=== PATIENT | male | born 1960 | race Caucasian/White ===

== ENCOUNTER 2018-07-01 09:00 | Observation (INO) ==
[2018-07-01] MEDS ORDERED: Naloxone 0.4 MG/ML INJ IVP PRN (09:49)
[2018-07-01 10:51] LABS: BUN/Creatinine Ratio 17 (6-26); Blood Urea Nitrogen 16 mg/dL (6-20); Calcium 9.6 mg/dL (8.6-10.3); Carbon Dioxide 24 mEq/L (23-29); Chloride 105 mEq/L (98-107); Glucose 103 mg/dL (70-105); Osmolality,Calculated 287 (280-300); Potassium 4.2 mEq/L (3.5-5.1); Sodium 138 mEq/L (136-145); eGFR For Non-African Americans > 60 (> 60)
--- NOTE | 2018-07-01 11:26 | Cardiology History & Physical ---
Addendum entered and electronically signed by Perry Noe MD 07/01/18 16:19: Continue Xarelto 20 mg daily Original Note: <Lynne Downing - Last Filed: 07/01/18 12:23> Date of Encounter: 07/01/18 Time of Encounter: 10:00 Assessment and Plan (1) PAF (paroxysmal atrial fibrillation) Current Visit: Yes Status: Chronic Per cardiology: -Known history of PAF. -Stress 05/2018 negative for ischemia. TTE 04/2018 LVEF preserved, indeterminate diastolic function, bi-atrial enlargement, mild MR, mild [place], no wall motion abnormalities noted. -ON cardizem at home. -ON xarelto for anticoagulation. -Plan for sotalol initiation. -Renal function normal. -Baseline ECG 07/01/17 with SR, HR 76. QT 376/ QTc 423ms. -Discussed and reviewed with , will start sotalol 80mg [id number]. -ECGs daily. -Continuous telemetry. -The assessment and plan as outlined above was discussed with the patient and/or family members who expressed understanding and agreement. All questions were answered. (2) Encounter for monitoring anti-arrhythmic therapy Current Visit: Yes Status: Acute Per cardiology: -Admitted for sotalol initiation. -See PAF as above -The assessment and plan as outlined above was discussed with the patient and/or family members who expressed understanding and agreement. All questions were answered. (3) Essential hypertension Current Visit: Yes Status: Chronic Per cardiology: -KNown HTN. -Will continue home anti-hypertensives. -The assessment and plan as outlined above was discussed with the patient and/or family members who expressed understanding and agreement. All questions were answered. History of Present Illness Chief complaint: A.fib HPI: Mr. Caceres is a 57 year old male with a relevant past medical history of HTN, PAF, kidney stones who was directly admitted to [facility] for sotalol initiation. Patient has known PAF and follows with outpatient. Patient denies complaints today. States he feels well. Deneis current palpitations or fluttering. Denies bleeding or blood loss. Anticoagulated with xarelto. Past Med Surg Social Fam HX - Past Medical History Attestation: Yes The following information was validated with the patient. Source: patient Medical history: atrial fibrillation, hypertension Additional medical history: basal cell skin CA Psychiatric history: no psych history - Past Surgical History Surgical History: herniorrhaphy Additional surgical history: basal cell skin CA removed from right of nose; kidney stone removal - Social History Smoking Status: Never smoker Smokeless Tobacco Status: No Alcohol use: none Drug use: none Medications and Allergies Aspirin 81 mg PO DAILY 02/15/17 [History] Mv-Mn/FA/Vit K/Lycop/Lut/Coq10 [Daily Multivitamin Capsule] 1 tab PO DAILY 02/15/17 [History] Diltiazem CD (24hr) [Cardizem CD] 300 mg PO DAILY 07/01/18 [History] Lisinopril [Zestril] 5 mg PO DAILY 07/01/18 [History] Rivaroxaban [Xarelto] 20 mg PO DAILY 07/01/18 [History] Allergy/AdvReac Type Severity Reaction Status Date / Time No Known Allergies Allergy Verified 02/15/17 12:53 All Systems Review: The remainder of the systems were reviewed and are negative - Cardiovascular Cardiovascular: as per HPI, palpitations (No current palpitations) Physical Examination Vital Signs, Last 4 Hours Temp Pulse Resp BP Pulse Ox 07/01/18 09:44 98.3 F 85 14 133/76 98 General: Conversant, No Apparent Distress HEENT: Atraumatic, Normocephaly, Mucus Membranes Moist Neck: No JVD, Normal carotid pulses Cardiac: Reg Rate and Rhythm, Normal S1 and S2, No Murmur Lungs: Normal Breath Sounds, No Wheeze, Rales, Rhonchi Neuro: Alert and responsive, No focal deficits noted Abdomen: Soft, Non-Tender Skin: No rashes noted on visualized skin Musculoskeletal: No Chest Wall Tenderness Extremities: No Clubbing, No Cyanosis, No Edema, Normal Pulses Results 07/01/18 10:13 07/01/18 10:13 Lab Results Laboratory Tests 07/01/18 10:13 Creatinine 0.93 - Imaging and Cardiology Stress Test: report reviewed Echo: report reviewed - EKG Interpretation EKG results cardiology: personally reviewed (ECG with SR, HR 76. QT 376/QTc 423ms.) - VTE Reasons for not Prescribing Prophylaxis: Not indicated-Anticoagulated or INR therapeutic < A - Last Filed: 07/01/18 16:19> Date of Encounter: 07/01/18 - Attending Attestation I have personally performed a face to face evaluation on this patient. I have reviewed and agree with the documented findings and care plan as documented by the APPLE PACKING HEADER. History and Exam by me shows: 57-year-old pleasant gentleman with history of paroxysmal atrial fibrillation, admitted for sotalol initiation. EKG shows normal sinus rhythm with QT interval within normal limits. Monitor EKGs on sotalol. Hold if QT interval is > 500 ms Perry Colvin MD History of Present Illness HPI: Mr. Caceres is a 57 year old male All Systems Review: The remainder of the systems were reviewed and are negative Physical Examination Vital Signs, Last 4 Hours Temp Pulse Resp BP Pulse Ox 07/01/18 14:35 97.5 F L 72 18 123/92 95 Results 07/01/18 10:13 07/01/18 10:13 Lab Results 07/01/18 07/01/18 10:13 10:13 WBC 7.4 Hgb 15.6 Hct 45.0 Plt Count 261 Sodium 138 Potassium 4.2 Chloride 105 Carbon Dioxide 24 BUN 16 Creatinine 0.93 Glucose 103 Calcium 9.6
[2018-07-01 11:59] LABS: Basophils # 0.1 K/mcL (0.0-0.2); Basophils % 0.8 %; Eosinophils # 0.2 K/mcL (0.0-0.6); Hemoglobin 15.6 g/dL (12.9-16.9); Immature Granulocytes % 0.4 % (0-4); Lymphocytes # 1.8 K/mcL (0.6-4.6); Mean Corpuscular HGB Conc 34.7 g/dL (31.6-35.5); Mean Corpuscular Hemoglobin 30.4 pg (28.0-33.3); Mean Corpuscular Volume 87.7 fL (83.0-100.0); Mean Platelet Volume 9.8 fL (9.4-12.4); Monocytes # 0.7 K/mcL (0.0-1.3); Monocytes % 9.9 %; Neutrophils # 4.6 K/mcL (1.6-8.9); Platelet Count 261 K/mcL (140-400); Red Blood Count 5.13 M/mcL (4.19-5.50); Red Cell Distribution Width 13.2 % (11.5-14.5); Segmented Neutrophils % 61.9 %
--- NOTE | 2018-07-01 15:30 | Electrocardiograph Report ---
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
[2018-07-02] MEDS: Multivit/Ca/Min/Fe/FA 1 TAB TABLET PO SCH (09:52)
[2018-07-02] MEDS: Aspirin 81 MG TAB.CHEW PO SCH (09:52)
[2018-07-02] MEDS: *HR* Rivaroxaban 10 MG TABLET PO SCH (09:52)
[2018-07-02] MEDS: Diltiazem CD (24hr) 300 MG CAPSULE PO SCH (09:52)
--- NOTE | 2018-07-02 10:40 | Cardiology Progress Note ---
Date of Encounter: 07/02/18 Time of Encounter: 09:00 Assessment and Plan (1) PAF (paroxysmal atrial fibrillation) Current Visit: Yes Status: Chronic Per cardiology: -Known history of PAF. -Stress 05/2018 negative for ischemia. TTE 04/2018 LVEF preserved, indeterminate diastolic function, bi-atrial enlargement, mild MR, mild MI, no wall motion abnormalities noted. -ON cardizem at home. -ON xarelto for anticoagulation. Denies missed doses in the past 30 days. -Renal function normal. -Baseline ECG 07/01/17 with SR, HR 76. QT 376/ QTc 423ms. -ECG 07/02/18 s/p 2 total doses with SR, HR 68. QT 417/QTc 444ms. -Continue sotalol. Continue cardizem and xarelto. -ECGs daily. -Continuous telemetry. -Will continue to monitor. (2) Encounter for monitoring anti-arrhythmic therapy Current Visit: Yes Status: Acute Per cardiology: -Admitted for sotalol initiation. -See PAF as above (3) Essential hypertension Current Visit: Yes Status: Chronic Per cardiology: -KNown HTN. -Will continue home anti-hypertensives. Discussion w patient/family: The assessment and plan as outlined above was discussed with the patient who expressed understanding and agreement. All questions were answered. Thank you for involving us in the care of your patient. Please call with any questions. Discussed and reviewed with Subjective Principal diagnosis: PAF Interval history: Patient reports he feels fine today. Denies complaints. Objective Vital Signs, Last 4 Hours Temp Pulse Resp BP Pulse Ox 07/02/18 07:30 97.8 F 67 16 133/91 96 General: Conversant, No Apparent Distress HEENT: Atraumatic, Normocephaly, Mucus Membranes Moist Neck: No JVD, Normal carotid pulses Cardiac: Reg Rate and Rhythm, Normal S1 and S2, No Murmur Lungs: Normal Breath Sounds, No Wheeze, Rales, Rhonchi Neuro: Alert and responsive, No focal deficits noted Abdomen: Soft, Non-Tender Skin: No rashes noted on visualized skin Musculoskeletal: No Chest Wall Tenderness Extremities: No Clubbing, No Cyanosis, No Edema, Normal Pulses Results 07/01/18 10:13 07/01/18 10:13 Lab Results 07/01/18 07/01/18 10:13 10:13 WBC 7.4 Hgb 15.6 Hct 45.0 Plt Count 261 Sodium 138 Potassium 4.2 Chloride 105 Carbon Dioxide 24 BUN 16 Creatinine 0.93 Glucose 103 Calcium 9.6 Active Medications Aspirin (Aspirin) 81 mg PO DAILY [facility] Stop: 01/01/19 09:01 Last Admin: 07/02/18 09:52 Dose: 81 mg Diltiazem HCl (Cardizem Cd) 300 mg PO DAILY [facility] Stop: 01/01/19 09:01 Last Admin: 07/02/18 09:52 Dose: 300 mg Lisinopril (Zestril) 5 mg PO DAILY [facility]; Protocol Stop: 01/01/19 09:01 Last Admin: 07/02/18 09:52 Dose: 5 mg Multivitamins/Calcium (Thera M Plus) 1 tab PO DAILY [facility] Stop: 01/01/19 09:01 Last Admin: 07/02/18 09:52 Dose: 1 tab Naloxone HCl (Narcan) 0.4 mg IVP Q2MIN PRN PRN Reason: SEE COMMENTS Stop: 12/31/18 09:50 Rivaroxaban (Xarelto) 20 mg PO DAILY [facility] Stop: 01/01/19 09:01 Last Admin: 07/02/18 09:52 Dose: 20 mg Sotalol HCl (Betapace) 80 mg PO Q12HR [facility] Stop: 12/31/18 18:01 Last Admin: 07/02/18 06:39 Dose: 80 mg - Imaging and Cardiology Stress Test: report reviewed Echo: report reviewed - EKG Interpretation EKG results cardiology: personally reviewed (ECG with SR, HR 68. QT 417/ QTc 44 4ms.) - VTE Reasons for not Prescribing Prophylaxis: Not indicated-Anticoagulated or INR therapeutic Consult Discharge Plan - Plan Referrals: Evaristo Weaver Jr, MD [Primary Care Provider] -
[2018-07-02] MEDS ORDERED: *HR* Rivaroxaban 10 MG TABLET PO SCH (17:00)
--- NOTE | 2018-07-02 17:48 | Electrocardiograph Report ---
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
[2018-07-03] MEDS: Aspirin 81 MG TAB.CHEW PO SCH (08:29)
[2018-07-03] MEDS: Multivit/Ca/Min/Fe/FA 1 TAB TABLET PO SCH (08:29)
[2018-07-03] MEDS: Diltiazem CD (24hr) 300 MG CAPSULE PO SCH (08:29)
[2018-07-03] MEDS: *HR* Rivaroxaban 10 MG TABLET PO SCH (08:29)
--- NOTE | 2018-07-03 11:28 | Cardiology Progress Note ---
Date of Encounter: 07/03/18 Time of Encounter: 09:00 Assessment and Plan (1) PAF (paroxysmal atrial fibrillation) Current Visit: Yes Status: Chronic Per cardiology: -Known history of PAF. -Stress 05/2018 negative for ischemia. TTE 04/2018 LVEF preserved, indeterminate diastolic function, bi-atrial enlargement, mild MR, mild [place], no wall motion abnormalities noted. -ON cardizem at home. -ON xarelto for anticoagulation. Denies missed doses in the past 30 days. -Renal function normal. -Baseline ECG 07/01/17 with SR, HR 76. QT 376/ QTc 423ms. -ECG 07/02/18 s/p 2 total doses with SR, HR 68. QT 417/QTc 444ms. -ECG 07/03/18 s/p 4 total doses with SR, HR 66. QT 424/QTc 445ms. -Continue sotalol. Continue cardizem and xarelto. -ECGs daily. -Continuous telemetry. -Will continue to monitor. -Anticipate discharge tomorrow morning, discussed with patient who is agreeable. (2) Encounter for monitoring anti-arrhythmic therapy Current Visit: Yes Status: Acute Per cardiology: -Admitted for sotalol initiation. -See PAF as above (3) Essential hypertension Current Visit: Yes Status: Chronic Per cardiology: -KNown HTN. -Will continue home anti-hypertensives. Discussion w patient/family: The assessment and plan as outlined above was discussed with the patient who expressed understanding and agreement. All questions were answered. Thank you for involving us in the care of your patient. Please call with any questions. Discussed and reviewed with Subjective Principal diagnosis: PAF Interval history: Patient reports he feels fine today. Denies complaints. Objective Vital Signs, Last 4 Hours Temp Pulse Resp BP Pulse Ox 07/03/18 09:00 97.9 F 62 17 119/82 96 General: Conversant, No Apparent Distress HEENT: Atraumatic, Normocephaly, Mucus Membranes Moist Neck: No JVD, Normal carotid pulses Cardiac: Reg Rate and Rhythm, Normal S1 and S2, No Murmur Lungs: Normal Breath Sounds, No Wheeze, Rales, Rhonchi Neuro: Alert and responsive, No focal deficits noted Abdomen: Soft, Non-Tender Skin: No rashes noted on visualized skin Musculoskeletal: No Chest Wall Tenderness Extremities: No Clubbing, No Cyanosis, No Edema, Normal Pulses Results 07/01/18 10:13 07/01/18 10:13 - Imaging and Cardiology Stress Test: report reviewed Echo: report reviewed - EKG Interpretation EKG results cardiology: personally reviewed (ECG today with SR, HR 66. QT 424/ QTc 445ms.) - VTE Reasons for not Prescribing Prophylaxis: Not indicated-Anticoagulated or INR therapeutic Consult Discharge Plan - Plan Referrals: Evaristo Weaver Jr, MD [Primary Care Provider] - 07/05/18 3:15 pm
[2018-07-04 07:22] VITALS: BP 123/96
[2018-07-04] MEDS: Diltiazem CD (24hr) 300 MG CAPSULE PO SCH (08:06)
[2018-07-04] MEDS: Multivit/Ca/Min/Fe/FA 1 TAB TABLET PO SCH (08:06)
[2018-07-04] MEDS: Aspirin 81 MG TAB.CHEW PO SCH (08:08)
[2018-07-04] MEDS: *HR* Rivaroxaban 10 MG TABLET PO SCH (08:09)
--- NOTE | 2018-07-04 08:45 | Discharge Summary ---
- NOTES TO OUTPATIENT PROVIDER Notes to Outpatient Provider: Admitted for sotalol initiation Date of Encounter: 07/04/18 Time of Encounter: 08:42 - Discharge Diagnosis (1) PAF (paroxysmal atrial fibrillation) Priority: Primary Status: Chronic Comments: Known PAF. (2) Encounter for monitoring anti-arrhythmic therapy Priority: Secondary Status: Acute Comments: Admitted for sotalol initiation (3) Essential hypertension Priority: Secondary Status: Chronic Comments: Known HTN, BP controlled this admission - Hospital Course Hospital course: Mr. Caceres is a 57 year old male who was admitted for sotalol initiation for PAF. Patient has remained in SR and is current s/p 6 total doses of sotalol. QT/QTc has remained stable, ECGs reviewed with . Vital signs stable. Patient is anticoagulated with xarelto. Patient is being prepped for discharge home in stable condition. RX sent to patient's pharmacy. Patient will follow with [facility], follow up set. - Time Spent with Patient Total time spent providing and/or coordinating discharge services: Less than 30 minutes - Discharge Medications Prescriptions: Sotalol [Betapace] 80 mg PO Q12HR #60 tablet Home Medications: Aspirin 81 mg PO DAILY 02/15/17 [History] Mv-Mn/FA/Vit K/Lycop/Lut/Coq10 [Daily Multivitamin Capsule] 1 tab PO DAILY 02/15/17 [History] Diltiazem CD (24hr) [Cardizem CD] 300 mg PO DAILY 07/01/18 [History] Lisinopril [Zestril] 5 mg PO DAILY 07/01/18 [History] Rivaroxaban [Xarelto] 20 mg PO DAILY 07/01/18 [History] Sotalol [Betapace] 80 mg PO Q12HR #60 tablet 07/04/18 [Rx] Allergies/Adverse Reactions: Allergy/AdvReac Type Severity Reaction Status Date / Time No Known Allergies Allergy Verified 02/15/17 12:53 Date of admission: 07/01/18 09:20 Primary care physician: Evaristo Weaver Jr, MD Discharging clinician: Lynne Downing Anticipated date of discharge: 07/04/18 Physical Examination Vital Signs, Last 4 Hours Temp Pulse Resp BP Pulse Ox 07/04/18 07:21 98.4 F 68 16 123/96 98 General: Conversant, No Apparent Distress HEENT: Atraumatic, Normocephaly, Mucus Membranes Moist Neck: No JVD, Normal carotid pulses Cardiac: Reg Rate and Rhythm, Normal S1 and S2, No Murmur Lungs: Normal Breath Sounds, No Wheeze, Rales, Rhonchi Neuro: Alert and responsive, No focal deficits noted Abdomen: Soft, Non-Tender Skin: No rashes noted on visualized skin Musculoskeletal: No Chest Wall Tenderness Extremities: No Clubbing, No Cyanosis, No Edema, Normal Pulses - Patient Status Disposition: Home, Self-Care Condition: Good Functional capacity at discharge: independent ambulation Overall status at discharge: patient is back to baseline - Discharge Instructions Follow Up With: Evaristo Weaver Jr, MD [Primary Care Provider] - 07/05/18 3:15 pm - Diet and Activity Activity: increase activity as tolerated Diet: advance to your usual diet - VTE Reasons for not Prescribing Prophylaxis: Not indicated-Anticoagulated or INR therapeutic
--- NOTE | 2018-07-04 21:34 | Electrocardiograph Report ---
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
--- NOTE | 2018-07-05 14:37 | Electrocardiograph Report ---
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
== END 2018-07-04 10:54 | disposition home or self-care (01) ==
LOC: 2SOUTHHOLD
PROVIDERS: ADMIT Internal Medicine; ATTEND Internal Medicine